=== PATIENT | male | born 1970 | race Caucasian/White ===

== ENCOUNTER 2018-01-23 00:23 | Outpatient (CLI) | payer BC, SELFPAY ==
--- NOTE | 2018-01-23 06:58 | MERGEMPI_ITS ---
*[facility]* *[facility]* [address] [place] [address] Myocardial Perfusion Imaging - SPECT Olegario protocol Date of study: 01/23/2018 *PATIENT PRESENTATION* Height: 175.3cm (69in) Blood Pressure: Weight: 129.5kg (285lb) BSA: 2.57m^2 Ordering physician: Jluis Capps Impressions: Normal perfusion by Tc99m Sestamibi Imaging. Summary: 1. Myocardial perfusion imaging: No myocardial perfusion defects noted. 2. The calculated left ventricular ejection fraction after stress: 65%. 3. Stress: The target heart rate was achieved. Indication: I20.9. History: Patient's presenting symptoms: asymptomatic. REASON FOR VISIT: PATIENT REPORTS HAVING BEEN EXPERIENCING SHORTNESS OF BREATH WITH MILD ACTIVITY FOR ABOUT A YEAR WITH SYMPTOMS WORSENING. EXERTIONAL DYSPNEA IS OCCASIONALLY ASSOCIATED WITH 4/10, LEFT STERNAL, NONRADIATING CHEST HEAVINESS. PATIENT REPORTS CHEST HEAVINESS OCCASIONALLY AT REST, THOUGH LESS SEVERE. PAST MEDICAL HISTORY: ALCOHOL ABUSE, MORBID OBESITY, HYPERTENSION, DYSLIPIDEMIA, ACID REFLUX. FAMILY HISTORY: FATHER (HEART ATTACK). SMOKING STATUS: NONSMOKER, QUIT 1989. EXERCISE ROUTINE: NONE. PMH: Asthma. Risk factors: Family history of coronary artery disease. Hypertension. Obesity. Dyslipidemia. Cholesterol: 292mg/dl. HDL: 28mg/dl. LDL: 94mg/dl. Triglycerides: 682mg/dl. ALLERGIES: NO KNOWN ALLERGIES. MEDICATIONS: ALBUTEROL SULFATE 2 PUFF, PRN. AMLODIPINE BESYLATE 10MG, DAILY. ASPIRIN 81MG, DAILY. CITALOPRAM 40MG, DAILY. FLUTICASONE PROPIONATE 100MCG NASAL, DAILY. HYDROCHLOROTHIAZIDE 12.5MG, DAILY. IBUPROFEN 800MG, TID. LISINOPRIL 40MG, DAILY. LORATADINE 10MG, DAILY. MULTIVITAMIN, DAILY. NAPROXEN SODIUM 500MG, DAILY. OMEGA-3 FATTY ACIDS/FISH OIL 1 TAB, DAILY. Imaging Technique: Protocol: Olegario protocol. Acquisition: Gated SPECT; 1 day - rest/stress. The patient was imaged in the supine position. Attenuation correction used. Isotope administration: - Rest. Tc[99m]-sestamibi. Dose: 12.3mCi. Injection time: 09:00 AM. Injection to stress time: 00:45. - Stress. Tc[99m]-sestamibi. Dose: 38mCi. Injection time: 10:50 AM. 1-2 min before end of exercise Baseline ECG: SINUS BRADYCARDIA. HEART RATE 56 BPM. Stress protocol: + +---+ + !Stage !HR !BP (mmHg) ! + +---+ + !Baseline supine !56 !138/80 (99) ! + +---+ + !Baseline standing !62 !134/84 (101)! + +---+ + !Stage I; 1.7mph, 10degrees; 3 min !98 !144/80 (101)! + +---+ + !Stage II; 2.5mph, 12degrees; 3 min !118!156/82 (107)! + +---+ + !Stage III; 3.4mph, 14degrees; 3 min!135!172/82 (112)! + +---+ + !Recovery; 1 min !136!184/84 (117)! + +---+ + !Recovery; 3 min !93 !200/84 (123)! + +---+ + !Recovery; 6 min !85 !154/80 (105)! + +---+ + * Stress results: Maximal heart rate during stress was 167bpm (97% of maximal predicted heart rate). The maximal predicted heart rate was 173bpm. The target heart rate was achieved. The rate-pressure product for the peak heart rate and blood pressure was 40369hx Hg/min. Stress ECG: TREADMILL PORTION OF EXERCISE STRESS TEST ENDED IN 10MIN 35SEC DUE TO PATIENT FATIGUE AND SHORTNESS OF BREATH. APPROPRIATE HEART RATE AND BLOOD PRESSURE RESPONSE TO EXERCISE. MAX HEART RATE 167 BPM, 96% OF TARGET HEART RATE. APPROXIMATE METS ACHIEVED 12.75. NO ANGINA REPORTED. PVCS INCREASING IN FREQUENCY DURING EXERCISE. ST SEGMENT ELEVATION NOTED IN LEAD II AND AVF AT BASELINE. DOWNWARD SLOPING ST SEGMENT DEPRESSION NOTED IN LEAD II AT 8MIN INTO TESTING. UPWARD SLOPING ST SEGMENT DEPRESSION NOTED IN LEADS V2, V3, AND V4 AT 8MIN INTO TESTING. ST SEGMENT CHANGES RETURNED TO BASELINE BY 4MIN RECOVERY. AVERAGE FUNCTIONAL CAPACITY. Myocardial perfusion: Imaging information: gated. No myocardial perfusion defects noted. Ventricular Function (Wall Motion): The calculated left ventricular ejection fraction after stress: 65%. Study data: Mamadou Brumfield MD supervised and was readily available during the procedure. This study was interpreted by [facility]. Study status: Routine. Consent: The risks, benefits, and alternatives to the procedure were explained to the patient and informed consent was obtained. Procedure: Initial setup. A baseline ECG was recorded. Surface ECG leads and manual cuff blood pressure measurements were monitored. Heart sounds: Normal. Lung sounds: Normal. Treadmill exercise testing was performed using the Olegario protocol. Study completion: All catheters inserted during the procedure were removed. The patient tolerated the procedure well and was discharged from the lab. Discharge: The patient left the laboratory in stable condition. Birthdate: Patient birthdate: 1970. Sex: Gender: male. Study date: Study date: 01/23/2018. Study time: 06:58 AM. Electronically signed by Mamadou Brumfield MD 01/23/2018 17:40
== END 2018-01-23 00:24 ==
PROVIDERS: PCP Physician Assistant Medical; Visit Provider Student in an Organized Health Care Education/Training Program
DX: I20.8 Other forms of angina pectoris (principal); R06.02 Shortness of breath; I10 Essential (primary) hypertension; E78.5 Hyperlipidemia, unspecified; E66.8 Other obesity; Z82.49 Family history of ischemic heart disease and other diseases of the circulatory system
CPT/HCPCS: 78452; 93017

== ENCOUNTER 2018-03-22 08:49 | Outpatient (REF) | payer BC, SELFPAY ==
[2018-03-22 21:00] LABS: HCT 41.5 % (40.0-50.0); HGB 14.3 g/dL (13.5-17.5); Mean Corp. HGB Concentration 34.5 g/dL (32.0-36.0); Mean Corpuscular Hemoglobin 30.2 pg (27.0-33.0); Mean Corpuscular Volume 87.6 fL (80-95); Mean Platelet Volume 10.1 fL (8.0-11.0); Platelet Count 284 x1000/uL (130-400); RBC 4.74 m/cumm (4.50-6.00); White Blood Cell Count 6.57 k/cumm (4.4-10.8)
[2018-03-22 21:34] LABS: ALT 41 U/L (12-78); AST 20 U/L (15-37); Albumin 4.2 g/dL (3.4-5.0); Alkaline Phosphatase 84 U/L (46-116); Anion Gap 6.5 mmol/L (3-11); BUN 17 mg/dL (7-18); Bilirubin, Total 0.5 mg/dL (0.2-1.0); CO2 29.5 mmol/L (21.0-32.0); CREATININE 1.09 mg/dL (0.70-1.30); Calcium 8.8 mg/dL (8.5-10.1); Chloride 99 mmol/L (98-107); Glucose 109 mg/dL (70-100); Potassium 4.3 mmol/L (3.5-5.1); Sodium 135 mmol/L (136-145); TSH 1.33 uIU/mL (0.358-3.74); Total Protein 7.8 g/dL (6.4-8.2); Vitamin B12 577 pg/mL (193-986)
[2018-03-22 21:35] LABS: Folate > 20.0 ng/mL (8.6-20.0)
[2018-03-22 21:48] LABS: C-Reactive Protein 0.34 mg/dL (0.0-0.3); Creatine Kinase 211 U/L (39-308)
[2018-03-22 21:57] LABS: ESR 24 MM/HR (0-15)
[2018-03-28 08:04] LABS: Thiamine (Vitamin B1), WB 226 nmol/L (70-180)
== END 2018-03-22 09:09 ==
LOC: NCHCN 08:49
PROVIDERS: PCP Physician Assistant Medical; Visit Provider Physician Assistant Medical
DX: M79.18 Myalgia, other site (principal)
CPT/HCPCS: 80053; 82550; 85027; 85652; 82607; 82746; 83735; 84425; 84443; 86140

== ENCOUNTER 2018-10-25 18:07 | Outpatient (REF) | payer BC, SELFPAY ==
[2018-10-25 20:40] LABS: HCT 39.7 % (40.0-50.0); HGB 13.7 g/dL (13.5-17.5); Mean Corp. HGB Concentration 34.5 g/dL (32.0-36.0); Mean Corpuscular Hemoglobin 29.5 pg (27.0-33.0); Mean Corpuscular Volume 85.4 fL (80-95); Mean Platelet Volume 10.3 fL (8.0-11.0); Platelet Count 271 x1000/uL (130-400); RBC 4.65 m/cumm (4.50-6.00); RBC Distribution Width 13.7 % (11.8-14.1); White Blood Cell Count 8.86 k/cumm (4.4-10.8)
[2018-10-25 20:48] LABS: ALT 49 U/L (12-78); AST 27 U/L (15-37); Albumin 4.2 g/dL (3.4-5.0); Alkaline Phosphatase 77 U/L (46-116); Anion Gap 6.7 mmol/L (3-11); BUN 18 mg/dL (7-18); Bilirubin, Total 0.3 mg/dL (0.2-1.0); CO2 30.3 mmol/L (21.0-32.0); CREATININE 1.19 mg/dL (0.70-1.30); Calcium 9.3 mg/dL (8.5-10.1); Chloride 99 mmol/L (98-107); Glucose 100 mg/dL (70-100); Potassium 4.4 mmol/L (3.5-5.1); Sodium 136 mmol/L (136-145); TSH 1.41 uIU/mL (0.358-3.74); Total Protein 7.7 g/dL (6.4-8.2)
[2018-10-27 08:47] LABS: PSA, Diagnostic 0.5 ng/ml (0-2.5)
== END 2018-10-25 18:27 ==
LOC: NCHCN 18:07
PROVIDERS: PCP Physician Assistant Medical; Visit Provider Physician Assistant Medical
DX: R00.2 Palpitations (principal); G47.9 Sleep disorder, unspecified
CPT/HCPCS: 80053; 85027; 84153; 84443

== ENCOUNTER 2019-05-24 09:10 | Outpatient (REF) | payer BC, SELFPAY ==
[2019-05-24 19:23] LABS: Anion Gap 8.8 mmol/L (3-11); BUN 15 mg/dL (7-18); CO2 29.2 mmol/L (21.0-32.0); CREATININE 1.01 mg/dL (0.70-1.30); Calcium 9.4 mg/dL (8.5-10.1); Chloride 99 mmol/L (98-107); Cholesterol 230 mg/dL (<200); Glucose 102 mg/dL (74-106); HDL Cholesterol 27 mg/dL (40-60); Potassium 4.2 mmol/L (3.5-5.1); Sodium 137 mmol/L (136-145); Triglyceride 500 mg/dL (<150)
[2019-05-24 19:37] LABS: LDL CHOLESTEROL 78 mg/dL (<100)
== END 2019-05-24 09:30 ==
LOC: NCHCN 09:10
PROVIDERS: PCP Physician Assistant Medical; Visit Provider Nurse Practitioner Family
DX: I10 Essential (primary) hypertension (principal); E78.5 Hyperlipidemia, unspecified
CPT/HCPCS: 80048; 80061; 83721

== ENCOUNTER 2019-11-26 09:34 | Outpatient (REF) | payer BC, SELFPAY ==
[2019-11-26 19:55] LABS: Albumin 4.2 g/dL (3.4-5.0); Alkaline Phosphatase 85 U/L (46-116); Anion Gap 9.5 mmol/L (3-11); BUN 20 mg/dL (7-18); Bilirubin, Total 0.3 mg/dL (0.2-1.0); CO2 27.5 mmol/L (21.0-32.0); CREATININE 1.01 mg/dL (0.70-1.30); Chloride 100 mmol/L (98-107); Cholesterol 238 mg/dL (<200); Glucose 111 mg/dL (74-106); HDL Cholesterol 23 mg/dL (40-60); Potassium 4.4 mmol/L (3.5-5.1); Sodium 137 mmol/L (136-145); Total Protein 7.6 g/dL (6.4-8.2); Triglyceride 848 mg/dL (<150)
[2019-11-26 20:06] LABS: ALT 61 U/L (16-63); LDL CHOLESTEROL 95 mg/dL (<100)
[2019-11-26 20:26] LABS: AST 35 U/L (15-37)
== END 2019-11-26 09:54 ==
LOC: NCHCN 09:34
PROVIDERS: PCP Physician Assistant Medical; Visit Provider Nurse Practitioner Family
DX: I10 Essential (primary) hypertension (principal); E78.5 Hyperlipidemia, unspecified; E78.1 Pure hyperglyceridemia
CPT/HCPCS: 80053; 80061; 83721

== ENCOUNTER 2020-04-22 15:58 | Outpatient (REF) | payer BC, SELFPAY ==
[2020-04-22 19:08] LABS: Calculated LDL 140 mg/dL (<100); Cholesterol 209 mg/dL (<200); HDL Cholesterol 41 mg/dL (40-60); Triglyceride 142 mg/dL (<150)
== END 2020-04-22 16:18 ==
LOC: NCHCN 15:58
PROVIDERS: PCP Physician Assistant Medical; Visit Provider Nurse Practitioner Family
DX: E78.5 Hyperlipidemia, unspecified (principal)
CPT/HCPCS: 80061

== ENCOUNTER 2020-06-03 17:34 | Outpatient (REF) | payer BC, SELFPAY ==
[2020-06-03 19:54] LABS: ALT 32 U/L (16-63); AST 22 U/L (15-37); Albumin 4.3 g/dL (3.4-5.0); Alkaline Phosphatase 60 U/L (46-116); Anion Gap 7.3 mmol/L (3-11); BUN 21 mg/dL (7-18); Bilirubin, Total 0.6 mg/dL (0.2-1.0); CO2 26.7 mmol/L (21.0-32.0); CREATININE 1.21 mg/dL (0.70-1.30); Calcium 9.3 mg/dL (8.5-10.1); Chloride 101 mmol/L (98-107); Glucose 96 mg/dL (74-106); Potassium 4.2 mmol/L (3.5-5.1); Sodium 135 mmol/L (136-145); Total Protein 7.6 g/dL (6.4-8.2)
[2020-06-03 20:00] LABS: Hemoglobin A1C 5.4 % (<5.7)
== END 2020-06-03 17:54 ==
LOC: NCHCN 17:34
PROVIDERS: PCP Physician Assistant Medical; Visit Provider Nurse Practitioner Family
DX: I10 Essential (primary) hypertension (principal); R73.9 Hyperglycemia, unspecified
CPT/HCPCS: 80053; 83036

== ENCOUNTER 2020-12-02 13:04 | Outpatient (REF) | payer OTHER, SELFPAY ==
[2020-12-02 19:18] LABS: Hemoglobin A1C 5.7 % (<5.7)
[2020-12-02 19:21] LABS: ALT 42 U/L (16-63); AST 21 U/L (15-37); Albumin 4.1 g/dL (3.4-5.0); Alkaline Phosphatase 63 U/L (46-116); Anion Gap 7.9 mmol/L (3-11); BUN 18 mg/dL (7-18); Bilirubin, Total 0.3 mg/dL (0.2-1.0); CO2 28.1 mmol/L (21.0-32.0); CREATININE 1.1 mg/dL (0.70-1.30); Calcium 9.2 mg/dL (8.5-10.1); Calculated LDL 147 mg/dL (<100); Chloride 103 mmol/L (98-107); Cholesterol 222 mg/dL (<200); Glucose 108 mg/dL (74-106); HDL Cholesterol 42 mg/dL (40-60); Potassium 4.7 mmol/L (3.5-5.1); Sodium 139 mmol/L (136-145); Total Protein 7.6 g/dL (6.4-8.2); Triglyceride 166 mg/dL (<150)
== END 2020-12-02 13:05 | disposition home or self-care (01) ==
LOC: NCHCN 13:04
PROVIDERS: PCP Physician Assistant Medical; Visit Provider Nurse Practitioner Family
DX: R73.9 Hyperglycemia, unspecified (principal); I10 Essential (primary) hypertension; E78.5 Hyperlipidemia, unspecified
CPT/HCPCS: 80053; 80061; 83036

== ENCOUNTER 2021-06-02 13:32 | Outpatient (REF) | payer OTHER, SELFPAY ==
[2021-06-02 19:32] LABS: Hemoglobin A1C 5.6 % (<5.7)
[2021-06-02 19:35] LABS: ALT 38 U/L (16-63); AST 22 U/L (15-37); Albumin 4.5 g/dL (3.4-5.0); Alkaline Phosphatase 58 U/L (46-116); Anion Gap 10.4 mmol/L (3-11); BUN 26 mg/dL (7-18); Bilirubin, Total 0.4 mg/dL (0.2-1.0); CO2 27.6 mmol/L (21.0-32.0); CREATININE 1.1 mg/dL (0.70-1.30); Calcium 9.2 mg/dL (8.5-10.1); Chloride 99 mmol/L (98-107); Glucose 88 mg/dL (74-106); Potassium 4.3 mmol/L (3.5-5.1); Sodium 137 mmol/L (136-145)
== END 2021-06-02 13:33 | disposition home or self-care (01) ==
LOC: NCHCN 13:32
PROVIDERS: PCP Physician Assistant Medical; Visit Provider Nurse Practitioner Family
DX: I10 Essential (primary) hypertension (principal); E78.5 Hyperlipidemia, unspecified; R73.03 Prediabetes
CPT/HCPCS: 80053; 83036

== ENCOUNTER 2021-11-30 08:56 | Outpatient (REF) | payer OTHER, SELFPAY ==
[2021-11-30 19:21] LABS: ALT 35 U/L (16-63); AST 26 U/L (15-37); Albumin 4.1 g/dL (3.4-5.0); Alkaline Phosphatase 60 U/L (46-116); Anion Gap 7.9 mmol/L (3-11); BUN 21 mg/dL (7-18); Bilirubin, Total 0.4 mg/dL (0.2-1.0); CO2 27.1 mmol/L (21.0-32.0); CREATININE 1.1 mg/dL (0.70-1.30); Calcium 8.9 mg/dL (8.5-10.1); Calculated LDL 107 mg/dL (<100); Chloride 106 mmol/L (98-107); Cholesterol 181 mg/dL (<200); Glucose 99 mg/dL (74-106); HDL Cholesterol 35 mg/dL (40-60); Potassium 4.3 mmol/L (3.5-5.1); Sodium 141 mmol/L (136-145); Total Protein 7.2 g/dL (6.4-8.2); Triglyceride 198 mg/dL (<150)
== END 2021-11-30 08:57 | disposition home or self-care (01) ==
LOC: NCHCN 08:56
PROVIDERS: PCP Physician Assistant Medical; Visit Provider Nurse Practitioner Family
DX: I10 Essential (primary) hypertension (principal); E78.1 Pure hyperglyceridemia
CPT/HCPCS: 80053; 80061

== ENCOUNTER 2022-10-18 15:28 | Outpatient (REF) | payer OTHER, SELFPAY ==
[2022-10-18 20:42] LABS: Hemoglobin A1C 5.7 % (<5.7)
[2022-10-18 20:52] LABS: ALT 34 U/L (16-63); AST 22 U/L (15-37); Alkaline Phosphatase 56 U/L (46-116); Anion Gap 3.3 mmol/L (3-11); BUN 18 mg/dL (7-18); Bilirubin, Total 0.2 mg/dL (0.2-1.0); CO2 28.7 mmol/L (21.0-32.0); CREATININE 1.1 mg/dL (0.70-1.30); Calcium 9.3 mg/dL (8.5-10.1); Calculated LDL 122 mg/dL (<100); Chloride 104 mmol/L (98-107); Cholesterol 214 mg/dL (<200); Estimated GFR 80.77 (mL/min/1.73m2); Glucose 105 mg/dL (74-106); HDL Cholesterol 34 mg/dL (40-60); Potassium 4.4 mmol/L (3.5-5.1); Sodium 136 mmol/L (136-145); Triglyceride 294 mg/dL (<150)
== END 2022-10-18 15:29 | disposition home or self-care (01) ==
LOC: NCHCN 15:28
PROVIDERS: PCP Physician Assistant Medical; Visit Provider Nurse Practitioner Family
DX: I10 Essential (primary) hypertension (principal); R73.03 Prediabetes; E78.1 Pure hyperglyceridemia
CPT/HCPCS: 80053; 80061; 83036

== ENCOUNTER 2023-06-08 14:34 | Outpatient (REF) | payer OTHER, SELFPAY ==
[2023-06-08 20:01] LABS: Anion Gap 7.5 mmol/L (3-11); BUN 23 mg/dL (7-18); CO2 27.5 mmol/L (21.0-32.0); CREATININE 1.2 mg/dL (0.70-1.30); Calcium 9.4 mg/dL (8.5-10.1); Chloride 103 mmol/L (98-107); Estimated GFR 72.31 (mL/min/1.73m2); Glucose 107 mg/dL (74-106); Potassium 4.4 mmol/L (3.5-5.1); Sodium 138 mmol/L (136-145)
[2023-06-08 20:18] LABS: Hemoglobin A1C 5.6 % (<5.7)
== END 2023-06-08 14:35 | disposition home or self-care (01) ==
LOC: NCHCN 14:34
PROVIDERS: PCP Physician Assistant Medical; Visit Provider Nurse Practitioner Family
DX: I10 Essential (primary) hypertension (principal); R73.03 Prediabetes
CPT/HCPCS: 80048; 83036

== ENCOUNTER 2023-09-25 07:54 | Emergency (ER) | payer OTHER, SELFPAY ==
[2023-09-25 07:58] VITALS: BP 186/101; PULSE 51; RESP 16; TEMP 37; O2SAT 98
--- NOTE | 2023-09-25 08:04 | NUR.NOTE ---
Nursing Note: patient reports not taking BP meds for 3+ days.
[2023-09-25 08:06] VITALS: BP 186/101; PULSE 51; RESP 16; TEMP 37; O2SAT 98
--- NOTE | 2023-09-25 09:18 | ED.GENADUL_ITS ---
Discharge Plan Disposition Patient Disposition: Home Condition: Stable Discharge Details Clinical Impression: Corneal abrasion, Corneal foreign body Primary Care Provider: Rox Hicks ED Provider: Jeniffer Doherty Home Meds and New Rx's Prescriptions: New moxifloxacin 0.5 % drops 1 drp ophthalmic (eye) TID 7 Days Qty: 3 0RF Continued acetaminophen [Tylenol] 325 MG tablet 0 PO PRN citalopram 40 MG tablet 40 mg PO DAILY ibuprofen 800 MG tablet 800 mg PO TID aspirin [Aspir-81] 81 MG tablet,delayed release (DR/EC) 81 mg PO DAILY albuterol sulfate [Ventolin HFA] 8 GM HFA aerosol inhaler 2 puff Inhalation Q4H PRN lisinopril 40 MG tablet 40 mg PO DAILY fluticasone propionate 16 GM spray,suspension 100 mcg NS DAILY loratadine 10 MG tablet 10 mg PO DAILY omega-3 fatty acids-fish oil 1 EACH capsule 1 ea PO DAILY MULTIVITAMIN See Rx Instructions PO DAILY Rx Instructions: 1 tab orally daily; budesonide-formoterol [Symbicort] 80-4.5 mcg/actuation HFA aerosol inhaler 2 puff inhalation BID sildenafil 50 mg tablet 50 mg PO DAILY PRN Rx Instructions: administer 30 minutes to 4 hours before activity amlodipine 10 mg tablet 10 mg PO DAILY triamterene-hydrochlorothiazid 37.5-25 mg tablet 1 tab PO DAILY pantoprazole 20 mg tablet,delayed release (DR/EC) 20 mg PO DAILY Patient Comments: TAKE ONE TABLET BY MOUTH EVERY DAY 30 MINUTES PRIOR TO A MEAL Discharge Instructions Instructions: Corneal Abrasion (ED) Additional Instructions: Use ketorolac as prescribed for pain Use the moxifloxacin drops as prescribed for the next 7 days Follow-up with your eye doctor on Tuesday for reassessment Please always wear safety goggles Return earlier with new or worsening complaints Referrals: Rox Hicks [Primary Care Provider] - HPI General Date/Time Provider Initiated Documentation: 09/25/23 08:16 . HPI Narrative: This 53-year-old male presents with report of possible foreign body to left orbit, symptoms present for the past several days. States he was grinding without glasses on. Denies any significant visual change, does report blurred vision. Related Data Home Medications Medication Instructions Recorded Confirmed Multivitamin See Rx Instructions PO DAILY 07/22/15 09/25/23 acetaminophen 325 mg tablet 0 PO PRN 07/22/15 (Tylenol) albuterol sulfate 90 mcg/actuation 2 puff inhalation Q4H PRN 07/22/15 09/25/23 aerosol inhaler (Ventolin HFA) aspirin 81 mg tablet,delayed 81 mg PO DAILY 07/22/15 09/25/23 release (Aspir-) citalopram 40 mg tablet 40 mg PO DAILY 07/22/15 09/25/23 fluticasone propionate 50 100 mcg NS DAILY 07/22/15 09/25/23 mcg/actuation nasal spray,suspension ibuprofen 800 mg tablet 800 mg PO TID 07/22/15 09/25/23 lisinopril 40 mg tablet 40 mg PO DAILY 07/22/15 09/25/23 loratadine 10 mg tablet 10 mg PO DAILY 07/22/15 09/25/23 omega-3 fatty acids-fish oil 300 1 ea PO DAILY 07/22/15 09/25/23 mg-1,000 mg capsule amlodipine 10 mg tablet 10 mg PO DAILY 08/23/23 09/25/23 budesonide-formoterol HFA 80 2 puff inhalation BID 08/23/23 09/25/23 mcg-4.5 mcg/actuation aerosol inhaler (Symbicort) sildenafil 50 mg tablet 50 mg PO DAILY PRN 08/23/23 09/25/23 triamterene 37.5 1 tab PO DAILY 08/23/23 09/25/23 mg-hydrochlorothiazide 25 mg tablet moxifloxacin 0.5 % eye drops 1 drp ophthalmic (eye) TID 7 days 09/25/23 #3 mL pantoprazole 20 mg tablet,delayed 20 mg PO DAILY 09/25/23 09/25/23 release Previous Rx's Medication Instructions Recorded moxifloxacin 0.5 % eye drops 1 drp ophthalmic (eye) TID 7 days 09/25/23 #3 mL Allergies Allergy/AdvReac Type Severity Reaction Status Date / Time No Known Allergies Allergy Unverified 08/07/15 14:38 General Stated Complaint: EyeProblem NANCY: 4 Course Vital Signs Vital signs: Vital Signs Temperature 37.0 C 09/25/23 07:58 Pulse 51 L 09/25/23 07:58 Respiratory Rate 16 09/25/23 07:58 Blood Pressure 186/101 H 04/07/24 07:58 Pulse Oximetry 98 09/25/23 07:58 Temperature 37.0 C 09/25/23 08:06 Pulse 51 L 09/25/23 08:06 Respiratory Rate 16 09/25/23 08:06 Respiratory Effort Normal, Non-Labored 09/25/23 08:06 Blood Pressure 186/101 H 09/25/23 08:06 Pulse Oximetry 98 09/25/23 08:06 Medical Decision Making 53-year-old male presents with report of left eye pain, has been welding and using a grinding wheel This is been for the past 3 days Tetanus up-to-date Pupils equal round reactive to light and accommodation, extraocular muscles intact, no visible sign of external trauma periorbitally, no proptosis or firmness to globe, low suspicion clinically for glaucoma or globe rupture Patient acuity 20/25 right eye, 20/25 left eye, OU 20/25 Foreign body removed with rust ring to the 9 o'clock position without incident Patient has had persistent and worsening pain so I did order CT orbit which does not show acute abnormality, I then used Cyclogyl to dilate the eye and patient's pain completely resolved Negative Selena sign, corneal abrasion noted Referred to ophthalmology for Tuesday appointment and placed on moxifloxacin eyedrops Return precautions reviewed and patient expressed understanding Quality:SDOH Health Related Social Needs: No Data to Display PFSH All Active Problems (Updated 09/25/23 @ 10:11 by ZEV Purdy) Corneal foreign body (Acute) Corneal abrasion (Acute) Hypertension (Chronic) Prediabetes (Acute) GERD (gastroesophageal reflux disease) (Chronic) Anxiety (Chronic) Medical History (Updated 09/25/23 @ 10:11 by ZEV Purdy) Hyperlipidemia Social History Smoking/Tobacco Use Status: Current every day Smoking risk assessment performed?: Yes Alcohol Intake: current Alcohol type: beer Substance use type: does not use Housing: house [facility] Have you Been Recently Intoxicated or Drunk Within the Last 30 days?: No Have you Ever Experienced Previous Episodes of Alcohol Withdrawal?: No Have you ever Experienced Withdrawal Seizures?: No Have you ever Experienced Delirium Tremens(DT)s?: No Have you ever undergone Alcohol Rehabilitation Treatment (i.e, inpt ot outpatient treatment programs)?: No Have you ever Experienced Blackouts?: No Have you ever Combined Alcohol with other Downers within the last 90 days?: No Have you ever Combined Alcohol with any other Substance of Abuse during the last 90 days?: No Positive Blood Alcohol level on Presentation? [PCS.BAL]: No Result: 0
[2023-09-25] MEDS: Normal Saline - Diluent 50 ML VIAL IJ (09:39)
[2023-09-25] MEDS: Omnipaque 350 MG/ML 100 ML BTL IJ (09:43)
--- NOTE | 2023-09-25 09:44 | DI.CT_ITS ---
Exam(s) CT ORBITS W EXAM: CT ORBITS W CLINICAL HISTORY: left orbit pain, trauma, eval for fb, left. TECHNIQUE: Imaging Protocol: Axial computed tomography images with coronal and sagittal reformatted images were created and reviewed. No IV contrast COMPARISON: No exams were available for comparison FINDINGS: MAXILLOFACIAL CT SCAN: There is no evidence of facial fractures nor evidence of orbital blowout fracture. No evidence of radiopaque foreign body in the region of the orbits. There is mucosal thickening in t he maxillary sinuses, more prominent on the right side where there is a probable post inflammatory re tention cysts. No bone dehiscence. No true fluid level. There is a small defect in the medial wall of the opposite-left maxillary sinus which may be postsurgical. Orbital globes and retro conal compartments appear unremarkable. Optic nerves appear unremarkable. IMPRESSION: No evidence of facial bone fractures nor orbital fractures. Paranasal sinus disease as described above. RADIATION DOSE DELIVERED: Total DLP DATA REPOSITORY: All CT scans at this facility are submitted to the National Radiology Data Registry (NRDR) Dose Index Registry (DIR) with the [employer] (ACR). RADIATION OPTIMIZATION: All CT scans at this facility use at least one of these dose optimization te chniques: automated exposure control; mA and/or kV adjustment per patient size (includes targeted exa ms where dose is matched to clinical indication); or iterative reconstruction.
[2023-09-25 10:05] VITALS: BP 139/83; RESP 18; O2SAT 99
--- NOTE | 2023-09-25 10:33 | DI.VRAD_ITS ---
PROCEDURE INFORMATION: Exam: CT Orbits With Contrast Exam date and time: 09/25/2023 9:37 AM Age: 53 years old Clinical indication: Eye pain; Left; Patient HX: Grinding metal - TECHNIQUE: Imaging protocol: Computed tomography of the orbits with contrast. Radiation optimization: All CT scans at this facility use at least one of these dose optimization techniques: automated exposure control; mA and/or kV adjustment per patient size (includes targeted exams where dose is matched to clinical indication); or iterative reconstruction. Contrast material: OMNI 350; Contrast volume: 100 ml; Contrast route: INTRAVENOUS (IV); COMPARISON: No relevant prior studies available. FINDINGS: Paranasal sinuses: Mucosal thickening/mucous retention cyst in the floor the right maxillary sinus. Orbital cavities: Orbits are normal. Globes are unremarkable. Bones/joints: No acute fracture. Soft tissues: No significant facial soft tissue swelling. IMPRESSION: 1. No evidence of an acute abnormality in the region of the left orbit. 2. Mild paranasal sinus disease in the right maxillary sinus. Correlate clinically. Dictated and Authenticated by: Keshawn Win MD. Ordering:LISE Swift MD
--- NOTE | 2023-09-25 10:53 | NUR.NOTE ---
Referral given to Care Managers to help Pt set up an appointment at [facility] in [place] on Tuesday for follow up on Foreign Body-AbrasionNursing Note:
== END 2023-09-25 11:16 | disposition home or self-care (01) ==
PROVIDERS: Emergency Provider Physician Assistant; PCP Nurse Practitioner Family
DX: T15.02XA Foreign body in cornea, left eye, initial encounter (principal); I10 Essential (primary) hypertension; F17.200 Nicotine dependence, unspecified, uncomplicated; Z79.82 Long term (current) use of aspirin; X58.XXXA Exposure to other specified factors, initial encounter
CPT/HCPCS: 99285; 70481; 99284; J3490

== ENCOUNTER 2023-10-07 09:55 | Day surgery (SDC) | payer OTHER, SELFPAY ==
--- NOTE | 2023-10-06 19:51 | W.COLOREPORT ---
Date of service: 10/07/23 Time of Service: 13:12 Colonoscopy Report Date of procedure: 10/07/23 Pre-op diagnosis general: crc screening Post-op diagnosis procedure note: other (Adenomatous polyps and diverticula) Surgeon: Izzy Shay Anesthesia Type: General:No Airway Estimated blood loss (mL): 1 Pathology: other Complications: None Disposition: same day Prep: Miralax/Dulcolax Retraction Time: 12 Procedure Description: After informed consent was obtained the patient was taken to the procedure room and placed in a left decubitous position. Monitors were applied and a time out was done. The patients name, date of , procedure, allergies to medications and metal in their body was reviewed. The patient was then sedated. Once sedated and comfortable a rectal exam was done. External exam was normal. Internal exam revealed a normal sphincter tone and no palpable masses. The prostate-no palpable masses The scope was then introduced and retrofelexed. No internal hemorrhoids were identified. The scope was then advanced to the cecum without difficulty. The TI and appendiceal orifice were identified. The scope was then slowly retracted over 12 minutes back into the rectum. There is a 0.5 cm flat polyp at 80 cm that is removed with a cold biopsy forcep. All specimen is retrieved and no bleeding is noted. He has few small scattered diverticula confined in the sigmoid colon. There is no signs of active bleeding or infection. The mucosa is pink and healthy with a normal vascular pattern.. The scope was removed and the patient was woken up and taken back to Same day surgery in stable condition. The patient tolerated the procedure well and there were no immediate complications. Follow up: The patient should follow up in 7 years unless they develop changes in bowel habits or other new gastrointestinal complaints. [place] Bowel Prep [place] Bowel Prep Right Colon: 3 Left Colon: 3 Transverse Colon: 3 Total Score: 9
--- NOTE | 2023-10-06 19:57 | PDOC.DSDIS_ITS ---
Date of service: 10/07/23 Time of Service: 13:14 Discharge Plan Disposition Patient Disposition: Home Condition: Good Discharge Details Reason For Visit: Colon scope Attending Provider: Izzy Shay Primary Care Provider: Rox Hicks Home Meds and New Rx's Prescriptions: Continued acetaminophen [Tylenol] 325 MG tablet 325 mg PO PRN PRN citalopram 40 MG tablet 40 mg PO DAILY ibuprofen 800 MG tablet 800 mg PO TID aspirin [Aspir-81] 81 MG tablet,delayed release (DR/EC) 81 mg PO DAILY albuterol sulfate [Ventolin HFA] 8 GM HFA aerosol inhaler 2 puff Inhalation Q4H PRN lisinopril 40 MG tablet 40 mg PO DAILY fluticasone propionate 16 GM spray,suspension 100 mcg NS DAILY loratadine 10 MG tablet 10 mg PO DAILY omega-3 fatty acids-fish oil 1 EACH capsule 1 ea PO DAILY MULTIVITAMIN See Rx Instructions PO DAILY Rx Instructions: 1 tab orally daily; budesonide-formoterol [Symbicort] 80-4.5 mcg/actuation HFA aerosol inhaler 2 puff inhalation BID sildenafil 50 mg tablet 50 mg PO DAILY PRN Rx Instructions: administer 30 minutes to 4 hours before activity amlodipine 10 mg tablet 10 mg PO DAILY triamterene-hydrochlorothiazid 37.5-25 mg tablet 1 tab PO DAILY pantoprazole 20 mg tablet,delayed release (DR/EC) 20 mg PO DAILY Patient Comments: TAKE ONE TABLET BY MOUTH EVERY DAY 30 MINUTES PRIOR TO A MEAL ketorolac [Acular] 0.5 % drops 1 drp ophthalmic (eye) QID Qty: 5 0RF Discontinued bisacodyl [Dulcolax (bisacodyl)] 5 mg tablet,delayed release (DR/EC) 5 mg PO ONCE Qty: 4 0RF Rx Instructions: Take per colonoscopy instructions provided by ordering providers office polyethylene glycol 3350 17 gram/dose powder 17 g PO ONCE Qty: 238 0RF Rx Instructions: Take per colonoscopy instructions provided by ordering providers office Discharge Instructions Additional Instructions: DSU Colonoscopy Post- Op Instructions Instructions for Everyone who is given Anesthesia: For your safety, please do the following for the next twenty-four (24) hours: *Do Not operate a motor vehicle (car, truck, motorcycle, etc.) *Do Not drink alcoholic beverages or use any recreational drugs for the first 24 hours or while taking pain medications. The medications in your body may have a reaction that can be dangerous. *Do Not make any important decisions or sign any important papers. Findings: Small polyp- My office will send you a letter in 2 to 3 weeks time with the results of the pathology and when you should REPEAT your colonoscopy Diverticula-make sure you are moving your bowels on a regular basis and you are not straining to go to the bathroom. If you have problems with constipation/straining, then it is recommended that you start a fiber product daily such as Metamucil. 1. No lifting over 20 pounds or strenuous activity for the first 24 hours after your procedure. After 24 hours there are no restrictions on your activity but you may feel fatigued for a few days. 2. After you arrive home you may have a light meal and return to your normal diet as you can tolerate it without feeling sick to your stomach. 3. You may have a bloated, gaseous feeling in your belly (abdomen) after a colonoscopy. Passing gas and belching will help. Walking or lying down on your left side with your knees flexed may relieve the discomfort. Call the office at [phone] (Office) or [phone] (Hospital) right away if you notice any of the following: a.Vomiting of blood or ?coffee ground stools?. b.Rectal bleeding 1Tbsp, blood clots or continuous bleeding. c.Severe belly (abdominal) pain. d.A hard distended belly (abdomen) and an inability to pass gas. 4. Please don?t expect to have a normal BM (bowel movement) for 2-3 days after your procedure. 5. If there are questions regarding the findings of your procedure, please contact your doctor 6. If you are unable to contact your doctor with a problem, contact the hospital at [phone]. 7. Continue all your regular medications unless directed otherwise. I understand the above instructions and have no questions. Signature of Patient or Adult Escort Name of Responsible Adult Escort Signature of Nurse Date/Time Activity:: See above Diet:: See above Discharge Orders Discharge Orders: Discharge Order (Routine); Ordered 10/07/23 Ordered By: Izzy Shay DS: Diagnosis Discharge Diagnosis (1) Hypertension: Status: Chronic (2) Prediabetes: Status: Acute (3) GERD (gastroesophageal reflux disease): Status: Chronic (4) Hyperlipidemia: (5) Diverticula of colon: Status: Acute
[2023-10-07 10:28] VITALS: BP 139/85; PULSE 55; RESP 16; TEMP 36.6; O2SAT 99
[2023-10-07] MEDS: Lactated Ringers 1,000 ML 80 ML IV (10:50)
[2023-10-07 12:26] VITALS: BMI 39.9
--- NOTE | 2023-10-07 12:26 | W.ANESPRE ---
General Info Date of Service Date Performed: 10/07/23 Height: 5 ft 9 in Weight: 122.5 kg Body Mass Index (BMI): 39.9 Surgical Procedure: Operation Date: 10/07/23 11:20 Proposed Procedure Side Surgeon p Colonoscopy Izzy Shay, Actual Procedure Side Surgeon p Colonoscopy Not Applicable Izzy Shay, Meds Allergies and Home Medications Allergies Allergy/AdvReac Type Severity Reaction Status Date / Time No Known Allergies Allergy Verified 10/07/23 10:25 Home Medication Medication Instructions Recorded Multivitamin See Rx Instructions PO DAILY 07/22/15 acetaminophen 325 mg tablet 325 mg PO PRN PRN 07/22/15 (Tylenol) albuterol sulfate 90 mcg/actuation 2 puff inhalation Q4H PRN 07/22/15 aerosol inhaler (Ventolin HFA) aspirin 81 mg tablet,delayed 81 mg PO DAILY 07/22/15 release (Aspir-) citalopram 40 mg tablet 40 mg PO DAILY 07/22/15 fluticasone propionate 50 100 mcg NS DAILY 07/22/15 mcg/actuation nasal spray,suspension ibuprofen 800 mg tablet 800 mg PO TID 07/22/15 lisinopril 40 mg tablet 40 mg PO DAILY 07/22/15 loratadine 10 mg tablet 10 mg PO DAILY 07/22/15 omega-3 fatty acids-fish oil 300 1 ea PO DAILY 07/22/15 mg-1,000 mg capsule amlodipine 10 mg tablet 10 mg PO DAILY 08/23/23 budesonide-formoterol HFA 80 2 puff inhalation BID 08/23/23 mcg-4.5 mcg/actuation aerosol inhaler (Symbicort) sildenafil 50 mg tablet 50 mg PO DAILY PRN 08/23/23 triamterene 37.5 1 tab PO DAILY 08/23/23 mg-hydrochlorothiazide 25 mg tablet ketorolac 0.5 % eye drops (Acular) 1 drp ophthalmic (eye) QID #5 mL 09/25/23 pantoprazole 20 mg tablet,delayed 20 mg PO DAILY 09/25/23 release bisacodyl 5 mg tablet,delayed 5 mg PO ONCE #4 tabs 09/29/23 release (Dulcolax (bisacodyl)) polyethylene glycol 3350 17 17 g PO ONCE #238 grams 09/29/23 gram/dose oral powder Current Visit Medications: Current Medications Generic Name Dose Route Start Last Admin Trade Name Freq PRN Reason Stop Dose Admin Hyoscyamine Sulfate 0.125 mg 10/07/23 02:04 Hyoscyamine 0.125 Mg Sl/Oral/Chew SL 11/06/23 02:03 DIRECTED PRN Ringer's Solution 1,000 mls @ 80 mls/hr 10/07/23 06:00 10/07/23 10:50 IV 10/18/23 23:59 80 mls/hr INFUSION HAIDER Administration IV Miscellaneous Supplies 1 each 10/07/23 06:00 Iv Access IV 10/18/23 23:59 DIRECTED HAIDER Ondansetron HCl 4 mg 10/07/23 02:04 Ondansetron 4 Mg/2 Ml Vial IVP 11/06/23 02:03 Q4H PRN PRN Nausea / Vomiting Sodium Chloride 0 ml 10/07/23 06:00 Normal Saline Flush 10 Ml Syr IV 10/18/23 23:59 PRN PRN Sodium Chloride 0 ml 10/07/23 06:00 Normal Saline 10 Ml Vial IJ 10/18/23 23:59 DIRECTED PRN Sterile Water 0 ml 10/07/23 06:00 Water,Injection,Sterile 10 Ml Vial IJ 10/18/23 23:59 DIRECTED PRN PFSH Active Problems Active Problems: Problem Status Onset Code Corneal foreign body T15.00XA Corneal abrasion S05.00XA Hypertension I10 Prediabetes R73.03 GERD (gastroesophageal reflux disease) K21.9 Anxiety F41.9 Medical History Medical History Hyperlipidemia Tobacco Smoking/Tobacco Use Status: Former Tobacco Use Alcohol Alcohol Intake: current Alcohol intake frequency: a few times a week Alcohol type: beer Substance Use Substance use: Never Substance use type: does not use Vital Signs and Lab Results Vital Signs Most Recent Vital Signs in EMR: Most Recent Vital Signs Temp Pulse Resp BP Pulse Ox 36.6 C 55 L 16 139/85 99 10/07/23 10:28 10/07/23 10:28 10/07/23 10:28 10/07/23 10:28 10/07/23 10:28 Lab Results Blood Type / Crossmatch: No Data to Display Complete Blood Count: No Data to Display Complete Metabolic Panel: No Data to Display Liver Function Panel: No Data to Display Coagulation Panel: No Data to Display Cardiac Panel: No Data to Display Arterial Blood Gas: No Data to Display Venous Blood Gas: No Data to Display Pancreas Panel: No Data to Display Thyroid Panel: No Data to Display Infectious Disease: No Data to Display Blood Cultures: No Data to Display Toxicology Panel: No Data to Display Imaging and Studies Imaging and Studies Study information below may be from another EMR and interpreted by another provider. Please see original notes in EMR for more complete details. Stress Test Summary: Date of study: 01/23/2018 *PATIENT PRESENTATION* Height: 175.3cm (69in) Blood Pressure: Weight: 129.5kg (285lb) BSA: 2.57m^2 Ordering physician: Jluis Capps Impressions: Normal perfusion by [id number] Sestamibi Imaging. Summary: 1. Myocardial perfusion imaging: No myocardial perfusion defects noted. 2. The calculated left ventricular ejection fraction after stress: 65%. 3. Stress: The target heart rate was achieved. Anesthesia Assessment and Plan Anesthesia History Personal History: No History of Anesthesia Complications Family History: No Family History of Anesthesia Complications Exercise Tolerance Exercise Tolerance: Metabolic Equivalents>4 Pertinent Negatives Pertinent Negatives: No Symptoms of GERD, No Major Cardiovascular Symptoms or Complaints and No History of CVA/TIA Cardiac & Pulmonary Exam Cardiac Exam: Normal S1/S2 Heart Sounds Pulmonary Exam: Clear Bilateral Breath Sounds Implantable Cardiac Device Does patient have a Pacemaker or an ICD?: No Airway Exam Known Difficult Airway: No Mallampati Class: 2 Mouth Opening: Normal (> 3cm) Thyromental Distance: Less than 3 cm Facial Hair: Full Ramirez Neck Range of Motion: Full ROM Neck Circumference: Normal Teeth Condition: Normal Dentition ASA Classification ASA Score: ASA 3 Emergency Case?: No NPO Status NPO Status: NPO Clears >2 hours, Solids >8 hours Anesthesia Plan Resuscitation Status: Full Code Anesthesia Technique: General Anesthesia Airway Planned: Natural Airway Monitors Used: Standard Monitors
--- NOTE | 2023-10-07 13:02 | BOWEL_PTH ---
PATIENT: Eduardo Holliday JR LOC: [facility] U#:[id number] AGE/SX: 53/M ROOM: RE10/07/[address]: Izzy Shay : 1970 BED: DIS: 10/07/2023 SPEC #: [id number] RECD: 10/07/23 17:16 STATUS: RUFUS RE #: [id number] DEE DEE: 10/07/23 13:[address]: Izzy Shay DEPT: Surgical Specimen RECD BY: Jeniffer Melara ENTERED: 10/07/23 17:17 SP TYPE: Bowel OTHR DR: Jennifer Hicks Tissues: 1 - BIOPSY BOWEL Procedures: GROSS AND MICRO LEVEL 4 Comments: [id number]
[2023-10-07 13:15] VITALS: BP 117/80; PULSE 46; RESP 16; TEMP 36.5; O2SAT 95
[2023-10-07 13:45] VITALS: BP 128/82; PULSE 47; RESP 16; TEMP 36.6; O2SAT 98
--- NOTE | 2023-10-07 13:47 | W.ANESPOSTOP ---
Postoperative Evaluation Date, Time and Location Date Performed: 10/07/23 Time Performed: 13:47 Patient Location: Day Surgery Unit Vital Signs Most Recent Imported Vital Signs: Most Recent Vital Signs Temp Pulse Resp BP Pulse Ox 36.5 C 46 L 16 117/80 95 10/07/23 13:15 10/07/23 13:15 10/07/23 13:15 10/07/23 13:15 10/07/23 13:15 Pain Score Most Recent Pain Score: Most Recent Pain Score Pain Level 0 10/07/23 13:15 Assessment Mental Status: Awake (Alert & Oriented to Patient Baseline) Airway and Respiratory Function: Patent airway with normal (patient baseline) respiratory exam Cardiovascular Function: Hemodynamically Stable Hydration Status: Adequately Hydrated Nausea & Vomiting: No Nausea or Vomiting Pain: Pt. Denies Any Pain Peripheral Nerve Block: Patient did not receive a nerve block
== END 2023-10-07 14:38 | disposition home or self-care (01) ==
PROVIDERS: PCP Nurse Practitioner Family; Visit Provider Surgery
PROC: 0DJD8ZZ Inspection of Lower Intestinal Tract, Via Natural or Artificial Opening Endoscopic (ICD-10-PCS; CPT 45378; principal; 2023-10-07 11:15)
DX: Z12.11 Encounter for screening for malignant neoplasm of colon (principal); K57.30 Diverticulosis of large intestine without perforation or abscess without bleeding; K21.9 Gastro-esophageal reflux disease without esophagitis; I10 Essential (primary) hypertension; D12.4 Benign neoplasm of descending colon
CPT/HCPCS: 45380; 88305; J2704

== ENCOUNTER 2024-04-24 08:56 | Outpatient (REF) | payer OTHER, SELFPAY ==
[2024-04-24 20:32] LABS: ALT 33 U/L (16-63); AST 22 U/L (15-37); Albumin 4.2 g/dL (3.4-5.0); Alkaline Phosphatase 57 U/L (46-116); Anion Gap 9.3 mmol/L (3-11); BUN 19 mg/dL (7-18); Bilirubin, Total 0.66 mg/dL (0.2-1.0); CO2 26.7 mmol/L (21.0-32.0); CREATININE 1.2 mg/dL (0.70-1.30); Calcium 9.6 mg/dL (8.5-10.1); Calculated LDL 121 mg/dL (<100); Chloride 105 mmol/L (98-107); Cholesterol 190 mg/dL (<200); Estimated GFR 72.31 (mL/min/1.73m2); Glucose 102 mg/dL (74-106); HDL Cholesterol 47 mg/dL (40-60); Potassium 4.4 mmol/L (3.5-5.1); Sodium 141 mmol/L (136-145); Total Protein 8.1 g/dL (6.4-8.2); Triglyceride 111 mg/dL (<150)
== END 2024-04-24 08:57 | disposition home or self-care (01) ==
LOC: NCHCN 08:56
PROVIDERS: PCP Nurse Practitioner Family; Visit Provider Nurse Practitioner Family
DX: I10 Essential (primary) hypertension (principal); E78.5 Hyperlipidemia, unspecified
CPT/HCPCS: 80053; 80061